=== PATIENT | male | born 1970 | race Caucasian/White ===

== ENCOUNTER → 2016-07-27 | Outpatient (CLI) | payer MEDICARE, MEDICAID ==
[~2016-07-27] MED LIST: ASPI81 PO; ATOR10TA84 PO; CINA30 PO; GLIP5 PO; HYDR-309 PO; LEVE250T55 PO; MUPI1OIN4 NS; NATE120 PO; OXYC10 PO; PANT40TA25 PO; PERCT PO; SEVEC800 PO; TRAM50TA4 PO
== END | disposition home or self-care (01) ==
LOC: RADMN 13:02
PROVIDERS: ATTEND Internal Medicine Geriatric Medicine
DX: M16.0 Bilateral primary osteoarthritis of hip (principal); M81.0 Age-related osteoporosis without current pathological fracture; M25.552 Pain in left hip; M79.671 Pain in right foot; M24.874 Other specific joint derangements of right foot, not elsewhere classified; M79.89 Other specified soft tissue disorders; M25.871 Other specified joint disorders, right ankle and foot
CPT/HCPCS: 73521

== ENCOUNTER 2016-08-06 14:24 | Emergency (ER) | payer MEDICARE, MEDICAID ==
[~2016-08-06] VITALS: Ht 188 cm; Wt 140.9 kg
[~2016-08-06 14:24] MED LIST changes: -GLIP5 PO; -OXYC10 PO; -PERCT PO; -TRAM50TA4 PO
[2016-08-06 14:46] LABS: GLUCOSE,POINT OF CARE 323 MG/DL (70-110)
[2016-08-06] MEDS: MORPHINE SULFATE 4 MG/ML SYRINGE IVP ONE (16:16)
[2016-08-06] MEDS: ONDANSETRON HCL 4 MG/2 ML VIAL IVP ONE (16:16)
[2016-08-06 16:42] VITALS: BP 154/92
== END 2016-08-06 17:24 | disposition home or self-care (01) ==
LOC: EMS 14:26
DX: S82.841A Displaced bimalleolar fracture of right lower leg, initial encounter for closed fracture (principal); K21.9 Gastro-esophageal reflux disease without esophagitis; E11.22 Type 2 diabetes mellitus with diabetic chronic kidney disease; N18.6 End stage renal disease; Z88.0 Allergy status to penicillin; Z88.8 Allergy status to other drugs, medicaments and biological substances; Z91.012 Allergy to eggs; Z79.82 Long term (current) use of aspirin; X58.XXXA Exposure to other specified factors, initial encounter; Y93.89 Activity, other specified; Y92.89 Other specified places as the place of occurrence of the external cause; Y99.8 Other external cause status
CPT/HCPCS: 29515; 73590; 82962; 96374; 96375; 99284; J2270; J2405

== ENCOUNTER 2016-08-14 19:08 | Inpatient (IN) | payer MEDICARE, MEDICAID ==
[~2016-08-14] VITALS: Ht 188 cm; Wt 123.0 kg
[2016-08-14 19:27] LABS: GLUCOSE COMMENT 1 Doctor Notified; GLUCOSE,POINT OF CARE 262 MG/DL (70-110)
[2016-08-14] MEDS ORDERED: TRAM50TA4 PO (19:30)
[2016-08-14] MEDS ORDERED: GLIP5 PO (19:30)
[2016-08-14 20:01] LABS: BASOPHILS % (AUTO) 0.3 % (0.0-2.0); EOSINOPHILS % (AUTO) 2.3 % (1.0-6.0); HEMATOCRIT 35.5 % (41-53); HEMOGLOBIN 11.6 g/dL (13.5-17.5); LYMPHOCYTES % (AUTO) 13.2 % (22.0-44.0); MEAN CORPUSCULAR HEMOGLOBIN 32.5 pg (26.0-34.0); MEAN CORPUSCULAR HGB CONC 32.5 G/dL (31.0-37.0); MEAN CORPUSCULAR VOLUME 100 fL (80-100); MONOCYTES # (AUTO) 0.5 K/uL (0.1-1.0); MONOCYTES % (AUTO) 7.3 % (2.0-9.0); NEUTROPHILS # (AUTO) 5.8 K/uL (1.8-7.7); NEUTROPHILS % (AUTO) 76.9 % (40.0-70.0); PLATELET COUNT (AUTO) 183 K/uL (150-450); RED BLOOD CELL COUNT(AUTO) 3.55 MIL/uL (4.50-5.90); RED CELL DISTRIBUTION WIDTH 15.8 % (11.5-14.5); WHITE BLOOD COUNT (AUTO) 7.5 K/uL (4.5-11.0)
[2016-08-14 20:16] LABS: CALCIUM, TOTAL 9.8 mg/dL (8.8-10.5); CREATININE 6.9 mg/dL (0.60-1.30); POTASSIUM 5.1 mmol/L (3.5-5.1)
[2016-08-14 20:26] LABS: ALBUMIN 3.3 g/dL (3.4-5.0); BILIRUBIN,TOTAL 0.3 mg/dL (0.1-1.0); TOTAL PROTEIN, SERUM 7.6 g/dL (6.4-8.2)
[2016-08-14] MEDS ORDERED: ACETAMINOPHEN 325 MG TABLET PO PRN (21:15)
[2016-08-14] MEDS ORDERED: ONDANSETRON HCL 4 MG/2 ML VIAL IVP PRN (21:15)
[2016-08-14] MEDS ORDERED: 0.9% SODIUM CHLORIDE 10 ML SYRINGE IVP PRN (21:15)
[2016-08-14] MEDS ORDERED: ONDANSETRON HCL 4 MG/2 ML VIAL IVP ONE (22:00)
[2016-08-14] MEDS ORDERED: MORPHINE SULFATE 4 MG/ML SYRINGE IVP ONE (22:00)
[2016-08-14 22:58] VITALS: BP 135/94
[2016-08-14] MEDS ORDERED: LORazepam 2 MG/ML VIAL IVP PRN (23:45)
[2016-08-15] MEDS ORDERED: HYDROCODONE/ACETAMINOPHEN 5-325 MG TABLET PO PRN
[2016-08-15 04:07] VITALS: BP 150/95
[2016-08-15 06:15] LABS: BASOPHILS % (AUTO) 0.3 % (0.0-2.0); EOSINOPHILS % (AUTO) 2.7 % (1.0-6.0); HEMATOCRIT 32.9 % (41-53); LYMPHOCYTES # (AUTO) 2.4 K/uL (1.0-4.8); LYMPHOCYTES % (AUTO) 28.7 % (22.0-44.0); MEAN CORPUSCULAR HEMOGLOBIN 33.6 pg (26.0-34.0); MEAN CORPUSCULAR HGB CONC 33.4 G/dL (31.0-37.0); MEAN CORPUSCULAR VOLUME 100 fL (80-100); MONOCYTES # (AUTO) 0.7 K/uL (0.1-1.0); MONOCYTES % (AUTO) 8.2 % (2.0-9.0); NEUTROPHILS % (AUTO) 60.1 % (40.0-70.0); PLATELET COUNT (AUTO) 177 K/uL (150-450); RED BLOOD CELL COUNT(AUTO) 3.28 MIL/uL (4.50-5.90); RED CELL DISTRIBUTION WIDTH 15.6 % (11.5-14.5); WHITE BLOOD COUNT (AUTO) 8.2 K/uL (4.5-11.0)
[2016-08-15] MEDS: GlipiZIDE 5 MG TABLET PO SCH (06:21)
[2016-08-15] MEDS: NATEGLINIDE 120 MG TABLET PO SCH ×3 (06:21→16:45)
[2016-08-15] MEDS: TraMADol HCL 50 MG TABLET PO PRN (06:21)
[2016-08-15 06:28] LABS: CALCIUM, TOTAL 9.7 mg/dL (8.8-10.5); CREATININE 7.32 mg/dL (0.60-1.30); POTASSIUM 4.6 mmol/L (3.5-5.1)
[2016-08-15 07:31] VITALS: BP 134/86
[2016-08-15] MEDS: SEVELAMER CARBONATE 800 MG TABLET PO SCH ×3 (08:25→18:03)
[2016-08-15] MEDS ORDERED: LevETIRAcetam 250 MG TABLET PO SCH (09:00)
[2016-08-15 09:45] LABS: RBC MORPHOLOGY COMMENT ABNORMAL RBC MORPH
[2016-08-15] MEDS: HEPARIN SODIUM,PORCINE 5,000 UNITS/ML VIAL SQ SCH ×2 (10:06→21:15)
[2016-08-15] MEDS: LevETIRAcetam 500 MG TABLET PO SCH ×2 (10:06→21:14)
[2016-08-15 11:11] VITALS: BP 115/71
[2016-08-15] MEDS ORDERED: SODIUM CHLORIDE 0.9% 2,000 ML IV ONE (11:15)
[2016-08-15] MEDS: ASPIRIN 81 MG CHEWABLE TABLET PO SCH (12:05)
[2016-08-15] MEDS: CINACALCET HCL 30 MG TABLET PO SCH (12:06)
[2016-08-15] MEDS ORDERED: MANNITOL 25%-12.5 GM/50 ML VIAL IVP PRN (12:15)
[2016-08-15] MEDS ORDERED: HEPARIN SODIUM,PORCINE 1,000 UNITS/ML VIAL IVP ONE ×3 (12:15→16:15)
[2016-08-15] MEDS ORDERED: ALBUMIN HUMAN 25%-12.5GM/50ML IV BOTTLE IV PRN (12:15)
[2016-08-15] MEDS ORDERED: DEXTROSE 50%-WATER 25 GM/50 ML SYRINGE IVP PRN (13:15)
[2016-08-15] MEDS: OxyCODONE HCL/ACETAMINOPHEN 5-325 MG TABLET PO PRN ×2 (13:23→21:29)
[2016-08-15] MEDS ORDERED: MAGNESIUM HYDROXIDE SUSPENSION 30 ML UDCUP PO PRN (14:00)
[2016-08-15] MEDS ORDERED: 0.9% SODIUM CHLORIDE 10 ML SYRINGE IVP PRN (14:00)
[2016-08-15] MEDS: DOCUSATE SODIUM 100 MG CAPSULE PO SCH ×2 (14:00→21:00)
[2016-08-15] MEDS ORDERED: ACETAMINOPHEN 325 MG TABLET PO PRN (14:00)
[2016-08-15] MEDS ORDERED: ONDANSETRON HCL 4 MG/2 ML VIAL IVP PRN (14:00)
[2016-08-15 15:15] VITALS: BP 130/80
[2016-08-15] MEDS: PANTOPRAZOLE SODIUM 40 MG/VIAL IVP SCH (16:45)
[2016-08-15] MEDS: INSULIN ASPART 100 UNITS/ML SQ PRN ×2 (18:04→21:27)
[2016-08-15 20:12] VITALS: BP 116/88
[2016-08-15] MEDS: MUPIROCIN CALCIUM 2% 22 GM OINTMENT NASAL SCH (21:14)
[2016-08-15] MEDS: ATORVASTATIN CALCIUM 10 MG TABLET PO SCH (21:14)
[2016-08-15 23:51] VITALS: BP 132/79
[2016-08-16] MEDS: TraMADol HCL 50 MG TABLET PO PRN ×3 (04:08→16:23)
[2016-08-16 04:33] VITALS: BP 122/88
[2016-08-16 06:37] LABS: BASOPHILS % (AUTO) 0.4 % (0.0-2.0); EOSINOPHILS % (AUTO) 4.1 % (1.0-6.0); HEMATOCRIT 31.8 % (41-53); HEMOGLOBIN 10.5 g/dL (13.5-17.5); LYMPHOCYTES # (AUTO) 2.2 K/uL (1.0-4.8); LYMPHOCYTES % (AUTO) 32.4 % (22.0-44.0); MEAN CORPUSCULAR HEMOGLOBIN 33.1 pg (26.0-34.0); MEAN CORPUSCULAR VOLUME 101 fL (80-100); MONOCYTES # (AUTO) 0.5 K/uL (0.1-1.0); MONOCYTES % (AUTO) 7.5 % (2.0-9.0); NEUTROPHILS # (AUTO) 3.8 K/uL (1.8-7.7); NEUTROPHILS % (AUTO) 55.6 % (40.0-70.0); PLATELET COUNT (AUTO) 158 K/uL (150-450); RED BLOOD CELL COUNT(AUTO) 3.16 MIL/uL (4.50-5.90); RED CELL DISTRIBUTION WIDTH 16.1 % (11.5-14.5); WHITE BLOOD COUNT (AUTO) 6.9 K/uL (4.5-11.0)
[2016-08-16 06:46] LABS: CALCIUM, TOTAL 9.2 mg/dL (8.8-10.5); CREATININE 5.63 mg/dL (0.60-1.30); POTASSIUM 4.4 mmol/L (3.5-5.1)
[2016-08-16] MEDS: INSULIN ASPART 100 UNITS/ML SQ PRN (06:48)
[2016-08-16] MEDS: GlipiZIDE 5 MG TABLET PO SCH (06:49)
[2016-08-16] MEDS: NATEGLINIDE 120 MG TABLET PO SCH ×3 (06:50→17:47)
[2016-08-16 07:26] VITALS: BP 123/80
[2016-08-16] MEDS: ASPIRIN 81 MG CHEWABLE TABLET PO SCH (08:17)
[2016-08-16] MEDS: LevETIRAcetam 500 MG TABLET PO SCH ×2 (08:18→20:31)
[2016-08-16] MEDS: SEVELAMER CARBONATE 800 MG TABLET PO SCH ×3 (08:18→17:47)
[2016-08-16] MEDS: CINACALCET HCL 30 MG TABLET PO SCH (08:18)
[2016-08-16] MEDS: DOCUSATE SODIUM 100 MG CAPSULE PO SCH ×2 (08:18→20:32)
[2016-08-16] MEDS: MUPIROCIN CALCIUM 2% 22 GM OINTMENT NASAL SCH ×2 (08:18→20:31)
[2016-08-16] MEDS: HEPARIN SODIUM,PORCINE 5,000 UNITS/ML VIAL SQ SCH ×2 (08:18→20:31)
[2016-08-16] MEDS: OxyCODONE HCL/ACETAMINOPHEN 5-325 MG TABLET PO PRN ×2 (10:23→17:48)
[2016-08-16 11:25] VITALS: BP 127/74
[2016-08-16] MEDS: PANTOPRAZOLE SODIUM 40 MG/VIAL IVP SCH (12:22)
[2016-08-16 15:20] VITALS: BP 113/69
[2016-08-16] MEDS: ATORVASTATIN CALCIUM 10 MG TABLET PO SCH (20:32)
[2016-08-17 00:01] VITALS: BP 118/81
[2016-08-17 04:14] VITALS: BP 135/77
[2016-08-17] MEDS: GlipiZIDE 5 MG TABLET PO SCH (06:12)
[2016-08-17] MEDS: NATEGLINIDE 120 MG TABLET PO SCH ×3 (06:12→17:27)
[2016-08-17 07:08] LABS: HEMOGLOBIN A1C 8.8 % (4.5-6.2)
[2016-08-17 07:14] LABS: BASOPHILS # (AUTO) 0.03 K/uL (0.00-0.20); BASOPHILS % (AUTO) 0.3 % (0.0-2.0); EOSINOPHILS # (AUTO) 0.17 K/uL (0.00-0.70); EOSINOPHILS % (AUTO) 2.11 % (1.0-6.0); HEMATOCRIT 32.9 % (41-53); HEMOGLOBIN 11.1 g/dL (13.5-17.5); LYMPHOCYTES # (AUTO) 1.9 K/uL (1.0-4.8); LYMPHOCYTES % (AUTO) 22.8 % (22.0-44.0); MEAN CORPUSCULAR HEMOGLOBIN 33.7 pg (26.0-34.0); MEAN CORPUSCULAR HGB CONC 33.8 G/dL (31.0-37.0); MEAN CORPUSCULAR VOLUME 100 fL (80-100); MONOCYTES # (AUTO) 0.4 K/uL (0.1-1.0); MONOCYTES % (AUTO) 5.1 % (2.0-9.0); NEUTROPHILS # (AUTO) 5.7 K/uL (1.8-7.7); NEUTROPHILS % (AUTO) 69.7 % (40.0-70.0); PLATELET COUNT (AUTO) 163 K/uL (150-450); RED CELL DISTRIBUTION WIDTH 16.2 % (11.5-14.5); WHITE BLOOD COUNT (AUTO) 8.2 K/uL (4.5-11.0)
[2016-08-17 07:23] VITALS: BP 144/87
[2016-08-17 07:24] LABS: CALCIUM, TOTAL 9.3 mg/dL (8.8-10.5); CREATININE 7.46 mg/dL (0.60-1.30); MAGNESIUM 1.9 mg/dL (1.80-2.40); POTASSIUM 4.4 mmol/L (3.5-5.1); THYROID STIMULATING HORMONE 1.87 uIU/mL (0.36-3.74)
[2016-08-17] MEDS: OxyCODONE HCL/ACETAMINOPHEN 5-325 MG TABLET PO PRN ×2 (08:27→17:31)
[2016-08-17] MEDS: SEVELAMER CARBONATE 800 MG TABLET PO SCH ×3 (08:27→17:27)
[2016-08-17] MEDS: LevETIRAcetam 500 MG TABLET PO SCH ×2 (08:27→21:20)
[2016-08-17] MEDS: CINACALCET HCL 30 MG TABLET PO SCH (08:27)
[2016-08-17] MEDS: ASPIRIN 81 MG CHEWABLE TABLET PO SCH (08:27)
[2016-08-17] MEDS: MUPIROCIN CALCIUM 2% 22 GM OINTMENT NASAL SCH ×2 (08:28→21:20)
[2016-08-17] MEDS: HEPARIN SODIUM,PORCINE 5,000 UNITS/ML VIAL SQ SCH ×2 (08:28→21:20)
[2016-08-17] MEDS: DOCUSATE SODIUM 100 MG CAPSULE PO SCH ×2 (08:28→21:00)
[2016-08-17] MEDS: PANTOPRAZOLE SODIUM 40 MG/VIAL IVP SCH (08:45)
[2016-08-17 11:50] VITALS: BP 122/86
[2016-08-17] MEDS ORDERED: OxyCODONE HCL/ACETAMINOPHEN 5-325 MG TABLET PO PRN (15:00)
[2016-08-17 15:29] VITALS: BP 133/81
[2016-08-17 19:39] VITALS: BP 128/80
[2016-08-17] MEDS: ATORVASTATIN CALCIUM 10 MG TABLET PO SCH (21:20)
[2016-08-18] MEDS: OxyCODONE HCL/ACETAMINOPHEN 5-325 MG TABLET PO PRN ×3 (00:11→21:11)
[2016-08-18 00:22] VITALS: BP 132/79
[2016-08-18 05:24] VITALS: BP 144/82
[2016-08-18] MEDS: NATEGLINIDE 120 MG TABLET PO SCH ×3 (06:17→17:53)
[2016-08-18 06:18] LABS: BASOPHILS % (AUTO) 0.3 % (0.0-2.0); EOSINOPHILS % (AUTO) 2.2 % (1.0-6.0); HEMATOCRIT 32.3 % (41-53); HEMOGLOBIN 10.7 g/dL (13.5-17.5); LYMPHOCYTES # (AUTO) 2.2 K/uL (1.0-4.8); LYMPHOCYTES % (AUTO) 26.4 % (22.0-44.0); MEAN CORPUSCULAR HEMOGLOBIN 33.1 pg (26.0-34.0); MEAN CORPUSCULAR HGB CONC 33.2 G/dL (31.0-37.0); MEAN CORPUSCULAR VOLUME 100 fL (80-100); MONOCYTES # (AUTO) 0.6 K/uL (0.1-1.0); MONOCYTES % (AUTO) 6.7 % (2.0-9.0); NEUTROPHILS # (AUTO) 5.4 K/uL (1.8-7.7); NEUTROPHILS % (AUTO) 64.4 % (40.0-70.0); PLATELET COUNT (AUTO) 169 K/uL (150-450); RED BLOOD CELL COUNT(AUTO) 3.23 MIL/uL (4.50-5.90); RED CELL DISTRIBUTION WIDTH 15.8 % (11.5-14.5); WHITE BLOOD COUNT (AUTO) 8.3 K/uL (4.5-11.0)
[2016-08-18] MEDS: GlipiZIDE 5 MG TABLET PO SCH (06:18)
[2016-08-18 06:38] LABS: CALCIUM, TOTAL 9.2 mg/dL (8.8-10.5); CREATININE 8.98 mg/dL (0.60-1.30); MAGNESIUM 2.1 mg/dL (1.80-2.40); PHOSPHORUS 6.1 mg/dL (2.5-4.9); POTASSIUM 4.7 mmol/L (3.5-5.1)
[2016-08-18 07:20] VITALS: BP 136/90
[2016-08-18] MEDS: DOCUSATE SODIUM 100 MG CAPSULE PO SCH ×2 (08:20→21:00)
[2016-08-18] MEDS: LevETIRAcetam 500 MG TABLET PO SCH ×2 (08:20→21:10)
[2016-08-18] MEDS: CINACALCET HCL 30 MG TABLET PO SCH (08:20)
[2016-08-18] MEDS: ASPIRIN 81 MG CHEWABLE TABLET PO SCH (08:20)
[2016-08-18] MEDS: PANTOPRAZOLE SODIUM 40 MG DR TABLET PO SCH (08:20)
[2016-08-18] MEDS: VITAMIN B COMP/VIT C/FOLIC ACID CAPSULE PO SCH (08:20)
[2016-08-18] MEDS: HEPARIN SODIUM,PORCINE 5,000 UNITS/ML VIAL SQ SCH ×2 (08:21→21:10)
[2016-08-18] MEDS: SEVELAMER CARBONATE 800 MG TABLET PO SCH ×3 (08:21→17:53)
[2016-08-18] MEDS: MUPIROCIN CALCIUM 2% 22 GM OINTMENT NASAL SCH ×2 (08:21→21:10)
[2016-08-18] MEDS ORDERED: SODIUM CHLORIDE 0.9% 1,000 ML IV ONE (08:28)
[2016-08-18] MEDS ORDERED: HEPARIN SODIUM,PORCINE 1,000 UNITS/ML VIAL IVP ONE ×3 (09:15→16:38)
[2016-08-18] MEDS ORDERED: MANNITOL 25%-12.5 GM/50 ML VIAL IVP PRN (09:15)
[2016-08-18 11:16] VITALS: BP 134/63
[2016-08-18] MEDS: EPOETIN ALFA 10,000 UNITS/ML 2 ML VIAL SQ SCH (12:06)
[2016-08-18 16:33] VITALS: BP 144/68
[2016-08-18 20:07] VITALS: BP 125/72
[2016-08-18] MEDS: ATORVASTATIN CALCIUM 10 MG TABLET PO SCH (21:10)
[2016-08-19] VITALS (7 sets, daily range): BP systolic 118–151; BP diastolic 76–97
[2016-08-19 06:08] LABS: PROTHROMBIN TIME 10.8 SEC (9.4-11.6)
[2016-08-19 06:13] LABS: BASOPHILS # (AUTO) 0.04 K/uL (0.00-0.20); BASOPHILS % (AUTO) 0.5 % (0.0-2.0); EOSINOPHILS # (AUTO) 0.16 K/uL (0.00-0.70); EOSINOPHILS % (AUTO) 1.96 % (1.0-6.0); HEMATOCRIT 32.9 % (41-53); LYMPHOCYTES # (AUTO) 2.4 K/uL (1.0-4.8); LYMPHOCYTES % (AUTO) 28.6 % (22.0-44.0); MEAN CORPUSCULAR HEMOGLOBIN 33.2 pg (26.0-34.0); MEAN CORPUSCULAR HGB CONC 33.5 G/dL (31.0-37.0); MEAN CORPUSCULAR VOLUME 99 fL (80-100); MONOCYTES # (AUTO) 0.6 K/uL (0.1-1.0); MONOCYTES % (AUTO) 7.2 % (2.0-9.0); NEUTROPHILS # (AUTO) 5.1 K/uL (1.8-7.7); NEUTROPHILS % (AUTO) 61.8 % (40.0-70.0); PLATELET COUNT (AUTO) 170 K/uL (150-450); RED BLOOD CELL COUNT(AUTO) 3.32 MIL/uL (4.50-5.90); RED CELL DISTRIBUTION WIDTH 16.6 % (11.5-14.5); WHITE BLOOD COUNT (AUTO) 8.3 K/uL (4.5-11.0)
[2016-08-19 06:22] LABS: CALCIUM, TOTAL 9.3 mg/dL (8.8-10.5); CREATININE 7.09 mg/dL (0.60-1.30); MAGNESIUM 1.8 mg/dL (1.80-2.40); PHOSPHORUS 5.2 mg/dL (2.5-4.9); POTASSIUM 4.8 mmol/L (3.5-5.1)
[2016-08-19] MEDS: GlipiZIDE 5 MG TABLET PO SCH (06:22)
[2016-08-19] MEDS: NATEGLINIDE 120 MG TABLET PO SCH ×3 (06:22→17:30)
[2016-08-19] MEDS ORDERED: LIDOCAINE HCL 1%/EPI 1:200,000/PF 10 ML VIAL ONE (08:22)
[2016-08-19] MEDS ORDERED: HEPARIN SODIUM,PORCINE 1,000 UNITS/ML 10 ML VIAL ONE (08:23)
[2016-08-19] MEDS ORDERED: HEPARIN SODIUM 1000 UNITS/NS 500 ML ONE (08:23)
[2016-08-19] MEDS ORDERED: MIDAZOLAM HCL 2 MG/2 ML VIAL ONE (10:03)
[2016-08-19] MEDS ORDERED: FLUMAZENIL 0.1 MG/ML 5 ML VIAL IVP ONE (10:03)
[2016-08-19] MEDS ORDERED: NALOXONE HCL 0.4 MG/ML VIAL ONE (10:03)
[2016-08-19] MEDS ORDERED: FentaNYL CITRATE-PF 100 MCG/2 ML VIAL ONE (10:03)
[2016-08-19] MEDS ORDERED: MIDAZOLAM HCL 2 MG/2 ML VIAL IVP ONE (10:20)
[2016-08-19] MEDS ORDERED: FentaNYL CITRATE-PF 100 MCG/2 ML VIAL IVP ONE (10:25)
[2016-08-19] MEDS: DOCUSATE SODIUM 100 MG CAPSULE PO SCH ×2 (12:10→21:00)
[2016-08-19] MEDS: VITAMIN B COMP/VIT C/FOLIC ACID CAPSULE PO SCH (12:11)
[2016-08-19] MEDS: ASPIRIN 81 MG CHEWABLE TABLET PO SCH (12:12)
[2016-08-19] MEDS: PANTOPRAZOLE SODIUM 40 MG DR TABLET PO SCH (12:12)
[2016-08-19] MEDS: SEVELAMER CARBONATE 800 MG TABLET PO SCH ×2 (12:12→21:06)
[2016-08-19] MEDS: LevETIRAcetam 500 MG TABLET PO SCH ×2 (12:12→21:05)
[2016-08-19] MEDS: AmLODIPine BESYLATE 2.5 MG TABLET PO SCH (12:12)
[2016-08-19] MEDS: MUPIROCIN CALCIUM 2% 22 GM OINTMENT NASAL SCH ×2 (12:13→21:06)
[2016-08-19] MEDS: CINACALCET HCL 30 MG TABLET PO SCH (12:13)
[2016-08-19] MEDS: HEPARIN SODIUM,PORCINE 5,000 UNITS/ML VIAL SQ SCH ×2 (12:13→21:07)
[2016-08-19] MEDS: OxyCODONE HCL/ACETAMINOPHEN 5-325 MG TABLET PO PRN ×2 (14:13→21:04)
[2016-08-19] MEDS ORDERED: IOVERSOL 350 MG/ML 150 ML VIAL ONE (14:42)
[2016-08-19] MEDS ORDERED: BARIUM SULFATE 0.1% SUSPENSION 450 ML BOTTLE ONE (14:43)
[2016-08-19] MEDS ORDERED: SODIUM CHLORIDE 0.9% 100 ML ONE (14:43)
[2016-08-19] MEDS: ATORVASTATIN CALCIUM 10 MG TABLET PO SCH (21:05)
[2016-08-20] VITALS (11 sets, daily range): BP systolic 105–135; BP diastolic 73–93
[2016-08-20 03:02] LABS: GLUCOSE,POINT OF CARE 89 MG/DL (70-110)
[2016-08-20] MEDS ORDERED: ALBUMIN HUMAN 25%-12.5GM/50ML IV BOTTLE IV PRN (04:45)
[2016-08-20] MEDS ORDERED: MANNITOL 25%-12.5 GM/50 ML VIAL IVP PRN (04:45)
[2016-08-20] MEDS ORDERED: HEPARIN SODIUM,PORCINE 1,000 UNITS/ML VIAL IVP ONE ×3 (04:45→18:23)
[2016-08-20 06:02] LABS: GLUCOSE,POINT OF CARE 113 MG/DL (70-110)
[2016-08-20 06:04] LABS: BASOPHILS % (AUTO) 0.3 % (0.0-2.0); EOSINOPHILS % (AUTO) 3.1 % (1.0-6.0); HEMATOCRIT 33.3 % (41-53); HEMOGLOBIN 10.9 g/dL (13.5-17.5); LYMPHOCYTES # (AUTO) 1.8 K/uL (1.0-4.8); LYMPHOCYTES % (AUTO) 25.7 % (22.0-44.0); MEAN CORPUSCULAR HEMOGLOBIN 32.9 pg (26.0-34.0); MEAN CORPUSCULAR HGB CONC 32.7 G/dL (31.0-37.0); MEAN CORPUSCULAR VOLUME 101 fL (80-100); MONOCYTES # (AUTO) 0.5 K/uL (0.1-1.0); MONOCYTES % (AUTO) 6.6 % (2.0-9.0); NEUTROPHILS # (AUTO) 4.5 K/uL (1.8-7.7); NEUTROPHILS % (AUTO) 64.3 % (40.0-70.0); PLATELET COUNT (AUTO) 197 K/uL (150-450); RED BLOOD CELL COUNT(AUTO) 3.31 MIL/uL (4.50-5.90); RED CELL DISTRIBUTION WIDTH 15.8 % (11.5-14.5); WHITE BLOOD COUNT (AUTO) 7.1 K/uL (4.5-11.0)
[2016-08-20 07:06] LABS: CALCIUM, TOTAL 8.9 mg/dL (8.8-10.5); CREATININE 5.31 mg/dL (0.60-1.30); MAGNESIUM 1.6 mg/dL (1.80-2.40); PHOSPHORUS 3.6 mg/dL (2.5-4.9); POTASSIUM 3.8 mmol/L (3.5-5.1)
[2016-08-20] MEDS: HEPARIN SODIUM,PORCINE 5,000 UNITS/ML VIAL SQ SCH ×2 (09:00→20:37)
[2016-08-20] MEDS: LevETIRAcetam 500 MG TABLET PO SCH ×2 (09:10→20:38)
[2016-08-20] MEDS: OxyCODONE HCL/ACETAMINOPHEN 5-325 MG TABLET PO PRN ×2 (09:10→20:38)
[2016-08-20] MEDS: DOCUSATE SODIUM 100 MG CAPSULE PO SCH ×2 (09:11→20:38)
[2016-08-20] MEDS: ASPIRIN 81 MG CHEWABLE TABLET PO SCH (09:11)
[2016-08-20] MEDS: PANTOPRAZOLE SODIUM 40 MG DR TABLET PO SCH (09:11)
[2016-08-20] MEDS: VITAMIN B COMP/VIT C/FOLIC ACID CAPSULE PO SCH (09:11)
[2016-08-20] MEDS: NATEGLINIDE 120 MG TABLET PO SCH ×3 (09:11→18:10)
[2016-08-20] MEDS: CINACALCET HCL 30 MG TABLET PO SCH (09:12)
[2016-08-20] MEDS: GlipiZIDE 5 MG TABLET PO SCH (09:12)
[2016-08-20] MEDS: SEVELAMER CARBONATE 800 MG TABLET PO SCH ×3 (09:12→18:10)
[2016-08-20] MEDS: MUPIROCIN CALCIUM 2% 22 GM OINTMENT NASAL SCH ×2 (09:13→20:39)
[2016-08-20 10:21] LABS: RBC MORPHOLOGY COMMENT ABNORMAL RBC MORPH
[2016-08-20] MEDS: AmLODIPine BESYLATE 2.5 MG TABLET PO SCH (11:58)
[2016-08-20] MEDS: EPOETIN ALFA 10,000 UNITS/ML 2 ML VIAL SQ SCH (14:28)
[2016-08-20] MEDS ORDERED: FentaNYL CITRATE-PF 100 MCG/2 ML VIAL ONE ×2 (15:14→15:58)
[2016-08-20] MEDS ORDERED: MIDAZOLAM HCL 2 MG/2 ML VIAL ONE ×2 (15:15→15:58)
[2016-08-20] MEDS ORDERED: IOHEXOL 240 MG/ML 50 ML VIAL ONE ×2 (15:23)
[2016-08-20] MEDS ORDERED: IOHEXOL 240 MG/ML 50 ML VIAL IVP ONE (16:05)
[2016-08-20] MEDS ORDERED: FentaNYL CITRATE-PF 100 MCG/2 ML VIAL IVP ONE (17:15)
[2016-08-20] MEDS ORDERED: MIDAZOLAM HCL 2 MG/2 ML VIAL IVP ONE (17:15)
[2016-08-20] MEDS ORDERED: LIDOCAINE HCL/PF 1% 30 ML VIAL INJ ONE (17:55)
[2016-08-20] MEDS ORDERED: ALBUMIN HUMAN 25%-12.5GM/50ML IV BOTTLE IV ONE (18:23)
[2016-08-20 18:32] LABS: GLUCOSE,POINT OF CARE 74 MG/DL (70-110)
[2016-08-20] MEDS: ATORVASTATIN CALCIUM 10 MG TABLET PO SCH (20:38)
[2016-08-20] MEDS: INSULIN ASPART 100 UNITS/ML SQ PRN (21:42)
[2016-08-21 03:30] VITALS: BP 134/86
[2016-08-21 04:47] LABS: GLUCOSE,POINT OF CARE 160 MG/DL (70-110)
[2016-08-21] MEDS: NATEGLINIDE 120 MG TABLET PO SCH ×3 (07:00→17:36)
[2016-08-21] MEDS: GlipiZIDE 5 MG TABLET PO SCH (07:01)
[2016-08-21] MEDS: OxyCODONE HCL/ACETAMINOPHEN 5-325 MG TABLET PO PRN ×3 (07:01→22:34)
[2016-08-21] MEDS: INSULIN ASPART 100 UNITS/ML SQ PRN ×3 (07:02→17:36)
[2016-08-21 07:30] VITALS: BP 133/91
[2016-08-21 07:57] LABS: GLUCOSE,POINT OF CARE 173 MG/DL (70-110)
[2016-08-21] MEDS: HEPARIN SODIUM,PORCINE 5,000 UNITS/ML VIAL SQ SCH ×2 (09:00→21:02)
[2016-08-21] MEDS: LevETIRAcetam 500 MG TABLET PO SCH ×2 (09:12→21:02)
[2016-08-21] MEDS: CINACALCET HCL 30 MG TABLET PO SCH (09:12)
[2016-08-21] MEDS: SEVELAMER CARBONATE 800 MG TABLET PO SCH ×3 (09:12→17:36)
[2016-08-21] MEDS: DOCUSATE SODIUM 100 MG CAPSULE PO SCH ×2 (09:12→21:02)
[2016-08-21] MEDS: PANTOPRAZOLE SODIUM 40 MG DR TABLET PO SCH (09:13)
[2016-08-21] MEDS: VITAMIN B COMP/VIT C/FOLIC ACID CAPSULE PO SCH (09:13)
[2016-08-21] MEDS: ASPIRIN 81 MG CHEWABLE TABLET PO SCH (09:13)
[2016-08-21] MEDS: AmLODIPine BESYLATE 2.5 MG TABLET PO SCH (09:13)
[2016-08-21] MEDS: MUPIROCIN CALCIUM 2% 22 GM OINTMENT NASAL SCH ×2 (09:14→21:02)
[2016-08-21 11:10] VITALS: BP 127/77
[2016-08-21 12:02] LABS: GLUCOSE,POINT OF CARE 164 MG/DL (70-110)
[2016-08-21 16:07] VITALS: BP 122/75
[2016-08-21 18:11] LABS: GLUCOSE,POINT OF CARE 120 MG/DL (70-110)
[2016-08-21 19:07] LABS: GLUCOSE,POINT OF CARE 117 MG/DL (70-110)
[2016-08-21 19:07] LABS: GLUCOSE COMMENT 1 Received Meds; GLUCOSE,POINT OF CARE 114 MG/DL (70-110)
[2016-08-21] MEDS: ATORVASTATIN CALCIUM 10 MG TABLET PO SCH (21:05)
[2016-08-21 21:13] VITALS: BP 119/70
[2016-08-21 21:17] LABS: GLUCOSE,POINT OF CARE 130 MG/DL (70-110)
[2016-08-22 02:02] VITALS: BP 134/81
[2016-08-22] MEDS: GlipiZIDE 5 MG TABLET PO SCH (06:16)
[2016-08-22 06:38] LABS: BASOPHILS % (AUTO) 0.3 % (0.0-2.0); EOSINOPHILS % (AUTO) 3.5 % (1.0-6.0); HEMATOCRIT 31.7 % (41-53); HEMOGLOBIN 10.4 g/dL (13.5-17.5); LYMPHOCYTES % (AUTO) 24.6 % (22.0-44.0); MEAN CORPUSCULAR HEMOGLOBIN 32.9 pg (26.0-34.0); MEAN CORPUSCULAR HGB CONC 32.6 G/dL (31.0-37.0); MEAN CORPUSCULAR VOLUME 101 fL (80-100); MONOCYTES # (AUTO) 0.5 K/uL (0.1-1.0); MONOCYTES % (AUTO) 6.8 % (2.0-9.0); NEUTROPHILS # (AUTO) 5.2 K/uL (1.8-7.7); NEUTROPHILS % (AUTO) 64.8 % (40.0-70.0); PLATELET COUNT (AUTO) 203 K/uL (150-450); RED BLOOD CELL COUNT(AUTO) 3.15 MIL/uL (4.50-5.90); RED CELL DISTRIBUTION WIDTH 16.4 % (11.5-14.5)
[2016-08-22 06:41] LABS: GLUCOSE,POINT OF CARE 96 MG/DL (70-110)
[2016-08-22 06:45] LABS: CALCIUM, TOTAL 9.6 mg/dL (8.8-10.5); CREATININE 8.69 mg/dL (0.60-1.30); PHOSPHORUS 5.5 mg/dL (2.5-4.9); POTASSIUM 5.5 mmol/L (3.5-5.1)
[2016-08-22 07:30] VITALS: BP 150/95
[2016-08-22] MEDS: EPOETIN ALFA 10,000 UNITS/ML 2 ML VIAL SQ SCH (07:48)
[2016-08-22] MEDS: OxyCODONE HCL/ACETAMINOPHEN 5-325 MG TABLET PO PRN (07:49)
[2016-08-22] MEDS: DOCUSATE SODIUM 100 MG CAPSULE PO SCH (07:49)
[2016-08-22] MEDS: HEPARIN SODIUM,PORCINE 5,000 UNITS/ML VIAL SQ SCH (07:49)
[2016-08-22] MEDS: LevETIRAcetam 500 MG TABLET PO SCH (07:49)
[2016-08-22] MEDS: NATEGLINIDE 120 MG TABLET PO SCH ×2 (07:49→12:01)
[2016-08-22] MEDS: PANTOPRAZOLE SODIUM 40 MG DR TABLET PO SCH (07:49)
[2016-08-22] MEDS: VITAMIN B COMP/VIT C/FOLIC ACID CAPSULE PO SCH (07:50)
[2016-08-22] MEDS: AmLODIPine BESYLATE 2.5 MG TABLET PO SCH (07:50)
[2016-08-22] MEDS: CINACALCET HCL 30 MG TABLET PO SCH (07:51)
[2016-08-22] MEDS: SEVELAMER CARBONATE 800 MG TABLET PO SCH ×2 (07:51→12:01)
[2016-08-22] MEDS: ASPIRIN 81 MG CHEWABLE TABLET PO SCH (08:37)
[2016-08-22] MEDS: MUPIROCIN CALCIUM 2% 22 GM OINTMENT NASAL SCH (08:39)
[2016-08-22] MEDS ORDERED: SODIUM CHLORIDE 0.9% 1,000 ML IV ONE (08:53)
[2016-08-22] MEDS ORDERED: MANNITOL 25%-12.5 GM/50 ML VIAL IVP PRN (09:15)
[2016-08-22] MEDS ORDERED: HEPARIN SODIUM,PORCINE 1,000 UNITS/ML VIAL IVP ONE ×3 (09:15→17:04)
[2016-08-22 09:21] LABS: RBC MORPHOLOGY COMMENT ABNORMAL RBC MORPH
[2016-08-22 11:32] LABS: GLUCOSE,POINT OF CARE 130 MG/DL (70-110)
[2016-08-22 11:33] VITALS: BP 156/95
[2016-08-22 15:30] VITALS: BP 142/80
[2016-08-22 19:57] LABS: GLUCOSE,POINT OF CARE 132 MG/DL (70-110)
[2016-08-30 06:29] LABS: GLUCOSE,POINT OF CARE 87 MG/DL (70-110)
[2016-08-30 06:29] LABS: GLUCOSE,POINT OF CARE 120 MG/DL (70-110)
[2016-08-30 06:30] LABS: GLUCOSE,POINT OF CARE 83 MG/DL (70-110)
[2016-08-30 06:30] LABS: GLUCOSE,POINT OF CARE 103 MG/DL (70-110)
== END 2016-08-22 17:05 | disposition home or self-care (01) | DRG 252 ==
LOC: EMS 19:09 → 5S 21:20 → 6N 08-19 20:47
PROVIDERS: ADMIT Internal Medicine Geriatric Medicine; ATTEND Internal Medicine Geriatric Medicine
PROC: 02H633Z Insertion of Infusion Device into Right Atrium, Percutaneous Approach (ICD-10-PCS; 2016-08-19)
PROC: B2141ZZ Fluoroscopy of Right Heart using Low Osmolar Contrast (ICD-10-PCS; 2016-08-19)
PROC: B51M1ZZ Fluoroscopy of Right Upper Extremity Veins using Low Osmolar Contrast (ICD-10-PCS; principal; 2016-08-20)
PROC: 05793ZZ Dilation of Right Brachial Vein, Percutaneous Approach (ICD-10-PCS; 2016-08-20)
DX: T82.858A Stenosis of other vascular prosthetic devices, implants and grafts, initial encounter (principal); N18.6 End stage renal disease; I69.351 Hemiplegia and hemiparesis following cerebral infarction affecting right dominant side; I12.0 Hypertensive chronic kidney disease with stage 5 chronic kidney disease or end stage renal disease; E46 Unspecified protein-calorie malnutrition; G82.20 Paraplegia, unspecified; Y92.89 Other specified places as the place of occurrence of the external cause; Y83.8 Other surgical procedures as the cause of abnormal reaction of the patient, or of later complication, without mention of misadventure at the time of the procedure; G40.409 Other generalized epilepsy and epileptic syndromes, not intractable, without status epilepticus; Z93.3 Colostomy status; S82.301A Unspecified fracture of lower end of right tibia, initial encounter for closed fracture; G89.4 Chronic pain syndrome; D64.9 Anemia, unspecified; E87.5 Hyperkalemia; E11.21 Type 2 diabetes mellitus with diabetic nephropathy; M79.601 Pain in right arm; E21.3 Hyperparathyroidism, unspecified; L89.90 Pressure ulcer of unspecified site, unspecified stage; E11.22 Type 2 diabetes mellitus with diabetic chronic kidney disease; E11.649 Type 2 diabetes mellitus with hypoglycemia without coma; E78.00 Pure hypercholesterolemia, unspecified; K21.9 Gastro-esophageal reflux disease without esophagitis; Z79.899 Other long term (current) drug therapy; Z83.3 Family history of diabetes mellitus; Z99.2 Dependence on renal dialysis; E66.01 Morbid (severe) obesity due to excess calories; Z88.0 Allergy status to penicillin; Z88.8 Allergy status to other drugs, medicaments and biological substances; Z91.012 Allergy to eggs; M79.89 Other specified soft tissue disorders; K43.5 Parastomal hernia without obstruction or gangrene; X58.XXXA Exposure to other specified factors, initial encounter; Y93.89 Activity, other specified; Y99.8 Other external cause status
CPT/HCPCS: 29405; 36245; 36561; 36590; 36870; 74177; 76937; 82306; 82607; 82746; 82962; 83036; 83735; 84100; 84443; 87081; 87340; 90935; 93005; 93971; 93990; 96374; 96375; 97163; 97530; 99285; C9113; G0482; J0885; J1644; J2250; J2270; J2310; J2405; J3010; J3490; J7030; J7050; P9047; Q9966

== ENCOUNTER 2016-10-03 22:22 | Inpatient (IN) | payer MEDICARE, MEDICAID ==
[~2016-10-03] VITALS: Ht 185.4 cm; Wt 113.6 kg
[~2016-10-03 22:22] MED LIST changes: +GLIP5 PO; -LEVE250T55 PO; -MUPI1OIN4 NS; -PANT40TA25 PO
[2016-10-03] MEDS ORDERED: OXYC10 PO (22:45)
[2016-10-03] MEDS ORDERED: LEVE250T55 PO (22:52)
[2016-10-03 22:57] LABS: GLUCOSE,POINT OF CARE 194 MG/DL (70-110)
[2016-10-03 23:25] LABS: BASOPHILS # (AUTO) 0.03 K/uL (0.00-0.20); BASOPHILS % (AUTO) 0.3 % (0.0-2.0); EOSINOPHILS # (AUTO) 0.17 K/uL (0.00-0.70); EOSINOPHILS % (AUTO) 1.83 % (1.0-6.0); HEMATOCRIT 40.2 % (41-53); HEMOGLOBIN 13.3 g/dL (13.5-17.5); LYMPHOCYTES # (AUTO) 0.9 K/uL (1.0-4.8); MEAN CORPUSCULAR HGB CONC 32.9 G/dL (31.0-37.0); MEAN CORPUSCULAR VOLUME 97 fL (80-100); MONOCYTES # (AUTO) 0.5 K/uL (0.1-1.0); MONOCYTES % (AUTO) 5.3 % (2.0-9.0); NEUTROPHILS # (AUTO) 7.9 K/uL (1.8-7.7); NEUTROPHILS % (AUTO) 83.6 % (40.0-70.0); PLATELET COUNT (AUTO) 168 K/uL (150-450); RED BLOOD CELL COUNT(AUTO) 4.14 MIL/uL (4.50-5.90); RED CELL DISTRIBUTION WIDTH 15.7 % (11.5-14.5); WHITE BLOOD COUNT (AUTO) 9.4 K/uL (4.5-11.0)
[2016-10-03 23:37] LABS: ANION GAP 8 mmol/L (8-16); CALCIUM, TOTAL 10.6 mg/dL (8.8-10.5); CARBON DIOXIDE 34 mmol/L (22-29); CHLORIDE 92 mmol/L (98-107); CREATININE 7.18 mg/dL (0.60-1.30); GLOMERULAR FILTR. RATE CALC 8 mL/min (>60); POTASSIUM 3.7 mmol/L (3.5-5.1); SODIUM SERUM 134 mmol/L (136-145); UREA NITROGEN, BLOOD 36 mg/dL (7-18)
[2016-10-03 23:43] LABS: ALANINE AMINOTRANSFERASE 58 U/L (12-78); ALBUMIN 3.8 g/dL (3.4-5.0); ASPARTATE AMINOTRANSFERASE 26 U/L (15-37); BILIRUBIN,TOTAL 0.5 mg/dL (0.1-1.0); TOTAL PROTEIN, SERUM 8.7 g/dL (6.4-8.2)
[2016-10-03] MEDS ORDERED: HYDROmorphone 2 MG/ML SYRINGE IVP ONE (23:45)
[2016-10-03] MEDS ORDERED: ONDANSETRON HCL 4 MG/2 ML VIAL IVP ONE (23:45)
[2016-10-03] MEDS ORDERED: LevETIRAcetam 1,000 MG in DEXTROSE 5%-WATER 100 ML IV ONE (23:45)
[2016-10-04] MEDS ORDERED: TRAM50TA4 PO (01:36)
[2016-10-04] MEDS ORDERED: PERCT PO (01:36)
[2016-10-04] MEDS ORDERED: ONDANSETRON HCL 4 MG/2 ML VIAL IVP PRN ×2 (02:00→10:30)
[2016-10-04] MEDS ORDERED: ACETAMINOPHEN 325 MG TABLET PO PRN ×2 (02:00→10:30)
[2016-10-04] MEDS ORDERED: 0.9% SODIUM CHLORIDE 10 ML SYRINGE IVP PRN (02:00)
[2016-10-04 03:17] LABS: GLUCOSE,POINT OF CARE 218 MG/DL (70-110)
[2016-10-04] MEDS ORDERED: AmLODIPine BESYLATE 5 MG TABLET PO ONE (05:15)
[2016-10-04] MEDS ORDERED: HYDROmorphone 2 MG/ML SYRINGE IVP ONE (05:15)
[2016-10-04] MEDS ORDERED: GlipiZIDE ER 2.5 MG ER TABLET PO ONE (08:45)
[2016-10-04] MEDS ORDERED: SEVELAMER CARBONATE 800 MG TABLET PO ONE (08:45)
[2016-10-04] MEDS ORDERED: LevETIRAcetam 500 MG TABLET PO ONE (09:00)
[2016-10-04 09:06] LABS: GLUCOSE,POINT OF CARE 203 MG/DL (70-110)
[2016-10-04] MEDS ORDERED: GlipiZIDE 5 MG TABLET PO ONE (09:15)
[2016-10-04] MEDS ORDERED: ALBUTEROL SULFATE 2.5 MG/0.5 ML NEB SOLUTION NEB PRN ×2 (10:30→21:15)
[2016-10-04] MEDS ORDERED: BISACODYL 10 MG RECTAL RECTAL SUPPOSITORY PR PRN (10:30)
[2016-10-04] MEDS ORDERED: DEXTROSE 50%-WATER 25 GM/50 ML SYRINGE IVP PRN (10:30)
[2016-10-04] MEDS: LevETIRAcetam 500 MG TABLET PO SCH ×2 (10:40→21:00)
[2016-10-04] MEDS: HEPARIN SODIUM,PORCINE 5,000 UNITS/ML VIAL SQ SCH ×2 (11:44→22:32)
[2016-10-04 12:22] LABS: GLUCOSE,POINT OF CARE 171 MG/DL (70-110)
[2016-10-04 16:38] VITALS: BP 120/85
[2016-10-04 18:25] VITALS: BP 114/85
[2016-10-04] MEDS: INSULIN ASPART 100 UNITS/ML SQ PRN ×2 (18:32→22:31)
[2016-10-04 18:37] LABS: GLUCOSE,POINT OF CARE 202 MG/DL (70-110)
[2016-10-04 21:40] VITALS: BP 125/85
[2016-10-04] MEDS: DOCUSATE SODIUM 100 MG CAPSULE PO SCH (22:32)
[2016-10-04] MEDS: ATORVASTATIN CALCIUM 20 MG TABLET PO SCH (22:32)
[2016-10-04 22:42] LABS: GLUCOSE,POINT OF CARE 142 MG/DL (70-110)
[2016-10-04] MEDS ORDERED: MELATONIN 3 MG TABLET PO PRN (22:45)
[2016-10-04] MEDS: HYDROCODONE/ACETAMINOPHEN 5-325 MG TABLET PO PRN (23:53)
[2016-10-05] VITALS (7 sets, daily range): BP systolic 116–160; BP diastolic 74–92
[2016-10-05] MEDS: GlipiZIDE 5 MG TABLET PO SCH (06:37)
[2016-10-05] MEDS: NATEGLINIDE 120 MG TABLET PO SCH ×3 (06:38→18:10)
[2016-10-05] MEDS: INSULIN ASPART 100 UNITS/ML SQ PRN ×3 (06:40→20:49)
[2016-10-05 06:52] LABS: GLUCOSE,POINT OF CARE 178 MG/DL (70-110)
[2016-10-05 07:05] LABS: HEMOGLOBIN A1C 7.6 % (4.5-6.2)
[2016-10-05 07:11] LABS: CALCIUM, TOTAL 10.7 mg/dL (8.8-10.5); CHOL/HDL RATIO 3.6 (4.2-7.3); CREATININE 9.78 mg/dL (0.60-1.30); MAGNESIUM 2.4 mg/dL (1.80-2.40); PHOSPHORUS 7.8 mg/dL (2.5-4.9); POTASSIUM 3.9 mmol/L (3.5-5.1); THYROID STIMULATING HORMONE 1.13 uIU/mL (0.36-3.74)
[2016-10-05] MEDS: DOCUSATE SODIUM 100 MG CAPSULE PO SCH ×2 (08:45→20:42)
[2016-10-05] MEDS: PANTOPRAZOLE SODIUM 40 MG DR TABLET PO SCH (08:45)
[2016-10-05] MEDS: HEPARIN SODIUM,PORCINE 5,000 UNITS/ML VIAL SQ SCH ×2 (08:45→20:42)
[2016-10-05] MEDS: VITAMIN B COMP/VIT C/FOLIC ACID CAPSULE PO SCH (08:46)
[2016-10-05] MEDS: HYDROCODONE/ACETAMINOPHEN 5-325 MG TABLET PO PRN ×2 (08:46→16:04)
[2016-10-05] MEDS: LevETIRAcetam 500 MG TABLET PO SCH ×2 (08:46→20:41)
[2016-10-05] MEDS: ASPIRIN 81 MG CHEWABLE TABLET PO SCH (08:46)
[2016-10-05] MEDS: CINACALCET HCL 30 MG TABLET PO SCH (09:19)
[2016-10-05 11:47] LABS: GLUCOSE,POINT OF CARE 164 MG/DL (70-110)
[2016-10-05 17:12] LABS: GLUCOSE,POINT OF CARE 130 MG/DL (70-110)
[2016-10-05] MEDS ORDERED: OxyCODONE HCL/ACETAMINOPHEN 5-325 MG TABLET PO PRN (17:45)
[2016-10-05] MEDS: ATORVASTATIN CALCIUM 20 MG TABLET PO SCH (20:42)
[2016-10-05 20:57] LABS: GLUCOSE,POINT OF CARE 199 MG/DL (70-110)
[2016-10-06 04:31] VITALS: BP 145/95
[2016-10-06] MEDS: GlipiZIDE 5 MG TABLET PO SCH (04:53)
[2016-10-06] MEDS: HYDROCODONE/ACETAMINOPHEN 5-325 MG TABLET PO PRN (04:53)
[2016-10-06 05:07] LABS: GLUCOSE,POINT OF CARE 199 MG/DL (70-110)
[2016-10-06 07:25] LABS: CALCIUM, TOTAL 10.3 mg/dL (8.8-10.5); CREATININE 11.24 mg/dL (0.60-1.30); MAGNESIUM 2.4 mg/dL (1.80-2.40); POTASSIUM 4.1 mmol/L (3.5-5.1)
[2016-10-06 07:45] VITALS: BP 122/71
[2016-10-06] MEDS: PANTOPRAZOLE SODIUM 40 MG DR TABLET PO SCH (08:19)
[2016-10-06] MEDS: ASPIRIN 81 MG CHEWABLE TABLET PO SCH (08:19)
[2016-10-06] MEDS: DOCUSATE SODIUM 100 MG CAPSULE PO SCH ×2 (08:19→20:33)
[2016-10-06] MEDS: VITAMIN B COMP/VIT C/FOLIC ACID CAPSULE PO SCH (08:19)
[2016-10-06] MEDS: LevETIRAcetam 500 MG TABLET PO SCH ×2 (08:19→20:33)
[2016-10-06] MEDS: NATEGLINIDE 120 MG TABLET PO SCH ×3 (08:20→18:15)
[2016-10-06] MEDS: CINACALCET HCL 30 MG TABLET PO SCH (08:20)
[2016-10-06] MEDS: CHOLECALCIFEROL (VIT D3) 2,000 UNITS TABLET PO SCH (08:20)
[2016-10-06] MEDS: HEPARIN SODIUM,PORCINE 5,000 UNITS/ML VIAL SQ SCH ×2 (08:23→20:33)
[2016-10-06 08:30] LABS: BASOPHILS % (AUTO) 0.4 % (0.0-2.0); EOSINOPHILS % (AUTO) 4.1 % (1.0-6.0); HEMATOCRIT 34.3 % (41-53); HEMOGLOBIN 11.7 g/dL (13.5-17.5); LYMPHOCYTES # (AUTO) 2.6 K/uL (1.0-4.8); LYMPHOCYTES % (AUTO) 29.2 % (22.0-44.0); MEAN CORPUSCULAR HEMOGLOBIN 32.6 pg (26.0-34.0); MEAN CORPUSCULAR VOLUME 96 fL (80-100); MONOCYTES # (AUTO) 0.6 K/uL (0.1-1.0); MONOCYTES % (AUTO) 7.2 % (2.0-9.0); NEUTROPHILS # (AUTO) 5.3 K/uL (1.8-7.7); NEUTROPHILS % (AUTO) 59.1 % (40.0-70.0); PLATELET COUNT (AUTO) 157 K/uL (150-450); RED BLOOD CELL COUNT(AUTO) 3.57 MIL/uL (4.50-5.90); RED CELL DISTRIBUTION WIDTH 15.2 % (11.5-14.5); WHITE BLOOD COUNT (AUTO) 8.9 K/uL (4.5-11.0)
[2016-10-06] MEDS ORDERED: HEPARIN SODIUM,PORCINE 1,000 UNITS/ML VIAL IVP ONE ×3 (10:30→16:59)
[2016-10-06] MEDS ORDERED: MANNITOL 25%-12.5 GM/50 ML VIAL IVP PRN (10:30)
[2016-10-06] MEDS: OxyCODONE HCL/ACETAMINOPHEN 10-325 MG TABLET PO PRN ×2 (12:57→18:56)
[2016-10-06 16:01] VITALS: BP 121/78
[2016-10-06] MEDS ORDERED: ALBUMIN HUMAN 25%-12.5GM/50ML IV BOTTLE IV ONE (16:59)
[2016-10-06] MEDS: INSULIN ASPART 100 UNITS/ML SQ PRN (17:19)
[2016-10-06 17:27] LABS: GLUCOSE COMMENT 1 Received Meds; GLUCOSE,POINT OF CARE 237 MG/DL (70-110)
[2016-10-06 19:20] VITALS: BP 119/76
[2016-10-06] MEDS: ATORVASTATIN CALCIUM 20 MG TABLET PO SCH (20:33)
[2016-10-06 23:38] VITALS: BP 112/70
[2016-10-07] MEDS: OxyCODONE HCL/ACETAMINOPHEN 10-325 MG TABLET PO PRN ×2 (01:04→14:30)
[2016-10-07 04:52] VITALS: BP 119/67
[2016-10-07] MEDS: GlipiZIDE 5 MG TABLET PO SCH (05:58)
[2016-10-07 06:11] LABS: BASOPHILS % (AUTO) 0.4 % (0.0-2.0); HEMATOCRIT 34.2 % (41-53); HEMOGLOBIN 11.6 g/dL (13.5-17.5); LYMPHOCYTES # (AUTO) 2.4 K/uL (1.0-4.8); LYMPHOCYTES % (AUTO) 31.7 % (22.0-44.0); MEAN CORPUSCULAR HEMOGLOBIN 32.5 pg (26.0-34.0); MEAN CORPUSCULAR HGB CONC 33.9 G/dL (31.0-37.0); MEAN CORPUSCULAR VOLUME 96 fL (80-100); MONOCYTES # (AUTO) 0.7 K/uL (0.1-1.0); NEUTROPHILS # (AUTO) 4.2 K/uL (1.8-7.7); NEUTROPHILS % (AUTO) 54.9 % (40.0-70.0); PLATELET COUNT (AUTO) 155 K/uL (150-450); RED BLOOD CELL COUNT(AUTO) 3.57 MIL/uL (4.50-5.90); RED CELL DISTRIBUTION WIDTH 15.8 % (11.5-14.5); WHITE BLOOD COUNT (AUTO) 7.7 K/uL (4.5-11.0)
[2016-10-07 06:20] LABS: PROTHROMBIN TIME 10.4 SEC (9.4-11.6)
[2016-10-07 06:27] LABS: GLUCOSE,POINT OF CARE 101 MG/DL (70-110)
[2016-10-07 06:30] LABS: CALCIUM, TOTAL 10.1 mg/dL (8.8-10.5); CREATININE 7.77 mg/dL (0.60-1.30); POTASSIUM 4.2 mmol/L (3.5-5.1)
[2016-10-07] MEDS: NATEGLINIDE 120 MG TABLET PO SCH ×3 (06:39→16:43)
[2016-10-07 07:23] VITALS: BP 131/71
[2016-10-07] MEDS: DOCUSATE SODIUM 100 MG CAPSULE PO SCH (08:16)
[2016-10-07] MEDS: ASPIRIN 81 MG CHEWABLE TABLET PO SCH (08:16)
[2016-10-07] MEDS: PANTOPRAZOLE SODIUM 40 MG DR TABLET PO SCH (08:16)
[2016-10-07] MEDS: VITAMIN B COMP/VIT C/FOLIC ACID CAPSULE PO SCH (08:16)
[2016-10-07] MEDS: HEPARIN SODIUM,PORCINE 5,000 UNITS/ML VIAL SQ SCH (08:16)
[2016-10-07] MEDS: CHOLECALCIFEROL (VIT D3) 2,000 UNITS TABLET PO SCH (08:17)
[2016-10-07] MEDS: CINACALCET HCL 30 MG TABLET PO SCH (08:17)
[2016-10-07] MEDS: LevETIRAcetam 500 MG TABLET PO SCH (08:17)
[2016-10-07 11:38] VITALS: BP 142/85
[2016-10-07 12:57] LABS: GLUCOSE,POINT OF CARE 124 MG/DL (70-110)
[2016-10-07 15:37] VITALS: BP 122/87
[2016-10-07 19:20] VITALS: BP 125/82
== END 2016-10-07 20:15 | DRG 100 ==
LOC: EMS 22:28 → AHU 10-04 15:45 → 4E 10-04 20:08 → 6N 10-05 07:56
PROVIDERS: ADMIT Internal Medicine; ATTEND Internal Medicine
DX: G40.909 Epilepsy, unspecified, not intractable, without status epilepticus (principal); N18.6 End stage renal disease; I12.0 Hypertensive chronic kidney disease with stage 5 chronic kidney disease or end stage renal disease; E44.0 Moderate protein-calorie malnutrition; L89.92 Pressure ulcer of unspecified site, stage 2; E11.21 Type 2 diabetes mellitus with diabetic nephropathy; E78.00 Pure hypercholesterolemia, unspecified; E78.5 Hyperlipidemia, unspecified; G89.4 Chronic pain syndrome; I25.10 Atherosclerotic heart disease of native coronary artery without angina pectoris; K21.9 Gastro-esophageal reflux disease without esophagitis; Z79.899 Other long term (current) drug therapy; Z82.49 Family history of ischemic heart disease and other diseases of the circulatory system; Z83.3 Family history of diabetes mellitus; Z93.3 Colostomy status; Z99.2 Dependence on renal dialysis; D64.9 Anemia, unspecified; E21.3 Hyperparathyroidism, unspecified; E66.01 Morbid (severe) obesity due to excess calories; R26.9 Unspecified abnormalities of gait and mobility; E11.22 Type 2 diabetes mellitus with diabetic chronic kidney disease; Z88.0 Allergy status to penicillin; I95.9 Hypotension, unspecified; Z86.73 Personal history of transient ischemic attack (TIA), and cerebral infarction without residual deficits; K43.5 Parastomal hernia without obstruction or gangrene; Z68.33 Body mass index [BMI] 33.0-33.9, adult
CPT/HCPCS: 70450; 82306; 82607; 82746; 82962; 83036; 83735; 83970; 84100; 84439; 84443; 87081; 90935; 96365; 96372; 96375; 96376; 99285; G0480; J0712; J1170; J1644; J1815; J2405; J7060; P9047

== ENCOUNTER → 2016-11-06 | Outpatient (CLI) | payer MEDICARE, MEDICAID ==
[~2016-11-06] MED LIST changes: -HYDR-309 PO; +LEVE250T55 PO; +PERCT PO; +TRAM50TA4 PO
== END | disposition home or self-care (01) ==
LOC: RADPV 10:14
PROVIDERS: ATTEND Internal Medicine Geriatric Medicine
DX: S82.301D Unspecified fracture of lower end of right tibia, subsequent encounter for closed fracture with routine healing (principal); M85.871 Other specified disorders of bone density and structure, right ankle and foot; X58.XXXD Exposure to other specified factors, subsequent encounter